=== PATIENT | male | born 1940 ===

== ENCOUNTER 2019-03-25 06:40 | Inpatient (IN) | payer MEDICARE, OTHER ==
[~2019-03-25] VITALS: Ht 180.3 cm; Wt 99.1 kg
[2019-03-25] MEDS ORDERED: ESOM20 PO (06:49)
[2019-03-25 07:12] LABS: BASOPHILS ABSOLUTE AUTO 0.07 K/mm3 (0.00-0.23); BASOPHILS PERCENT AUTO 0 % (0-2); EOSINOPHILS PERCENT AUTO 0 % (0-6); Hematocrit 47.6 % (37.0-53.0); Hemoglobin 15.1 g/dL (13.5-17.5); IMMATURE GRAN ABSOLUTE AUTO 0.19 K/mm3 (0.00-0.10); IMMATURE GRAN PERCENT AUTO 1 % (0-1); LYMPHOCYTES ABSOLUTE AUTO 2.48 K/mm3 (0.84-5.20); LYMPHOCYTES PERCENT AUTO 9 % (21-46); MONOCYTES ABSOLUTE AUTO 2.49 K/mm3 (0.16-1.47); MONOCYTES PERCENT AUTO 9 % (4-13); Mean Corpuscular HGB 30.4 pg (26.0-34.0); Mean Corpuscular HGB Conc 31.7 g/dL (31.5-36.5); Mean Corpuscular Volume 96 fL (80-100); Mean Platelet Volume 8.9 fL (9.1-12.4); NEUTROPHILS PERCENT AUTO 80 % (41-73); Platelet Count 394 K/mm3 (150-400); RDW Coefficient Variation 14.1 % (11.7-14.2); RDW Standard Deviation 49.6 fL (35.1-46.3); Red Blood Cell Count 4.97 M/mm3 (4.30-5.90); White Blood Cell Count 26.63 K/mm3 (4.00-11.30)
[2019-03-25 07:23] LABS: Bilirubin, Total 0.4 mg/dL (0.1-1.0); Bun/Creatinine Ratio 18.7 (12.0-20.0); Calcium, Blood 9.2 mg/dL (8.5-10.1); Creatinine, Blood 1.82 mg/dL (0.60-1.20); Globulin, Blood 4.2 g/dL (2.2-4.0); Potassium, Blood 4.4 mmol/L (3.5-5.5); Total Protein, Blood 8.2 g/dL (6.4-8.2)
[2019-03-25 07:28] LABS: International Normalized Ratio 0.97; Prothrombin Time Results 10.3 Sec (9.7-11.5)
[2019-03-25 09:14] LABS: Source, Urine Catheter
[2019-03-25 09:16] LABS: Appearance, Urine Clear (Clear); Bilirubin, Urine Neg (Neg); Blood, Urine 2+ (Neg); Color, Urine Yellow (P-Yellow); Glucose Qualitative, Urine Neg (Neg); Ketones, Urine 2+ (Neg); Leukocyte Esterase, Urine Neg (Neg); Nitrite, Urine Neg (Neg); Protein, Urine Neg (Neg); Urobilinogen, Urine NORM (Normal)
[2019-03-25 09:31] LABS: Bacteria Few /hpf; Squamous Epithelial Cells Rare /hpf (Few); White Blood Cells, Urine 0-2 /hpf (0-5)
[2019-03-25 09:34] LABS: PCO2 Arterial 23.6 mmHg (35-45); PO2 Arterial 65.3 mmHg (80-100); pH Blood Arterial 7.35 (7.35-7.45)
[2019-03-25 10:03] LABS: Magnesium, Blood 2.5 mg/dL (1.6-2.4); Phosphorus, Blood 7.9 mg/dL (2.5-4.9)
[2019-03-25 15:14] LABS: Bun/Creatinine Ratio 25.7 (12.0-20.0); Creatinine, Blood 1.36 mg/dL (0.60-1.20); Potassium, Blood 4.3 mmol/L (3.5-5.5)
[2019-03-25 16:33] LABS: Hematocrit 39.4 % (37.0-53.0); Hemoglobin 13.3 g/dL (13.5-17.5)
--- NOTE | 2019-03-25 17:08 | NUR ---
PT BILLY FLUSHED WITH 60ML OF STERILE WATER PER MD ORDER. PT HAS HAD MINIMAL OUTPUT OVER THE LAST HOUR (75ML) SO FLUSH WAS DONE. BILLY BAG HAS NEARLY 200ML IN IT AT THIS TIME BRIGHT RED URINE. SMALL CLOTS NOTED PRIOR TO THE FLUSH HOWEVER POST FLUSH NO CLOTS ARE VISIBLE POSSIBLE BLOOD R/T TRAUMA FROM CATHETER PLACEMENT D/T OBSTRUCTION.
--- NOTE | 2019-03-25 18:57 | NUR ---
SHIFT SUMMARY- PT ALERT AND ORIENTED. BILLY IN PLACE PATENT AND DRAINING ORDER TO FLUSH Q1H NEEDED D/T CLOTS. CLOTS ARE VERY SMALL IF ANY ARE VISIBLE AT THIS TIME. PT HAS HAD NO C/O PAIN T/O THE SHIFT SINCE ADMISSION THROUGH THE ED, TEMP WAS ELEVATED TO 100.3 MEDICATED WITH TYLENOL AND TEMP ON FOLLOW UP WAS 99.1. PT HAS A LACTIC OF 6.6 ON THE LAST LABS. PT SEEMS TO HAVE MORE ENERGY THAN HE HAD EARLIER IN THE SHIFT.
--- NOTE | 2019-03-26 04:00 | NUR ---
BILLY FLUSH FLUSH PER ORDER. PT HAD FEW SMALL BLOOD CLOTS NOTED. BILLY BEEN DRAINING FREELY W/OUT ISSUE. URINE REMAINS LIGHT PINK.
[2019-03-26 04:16] LABS: BASOPHILS ABSOLUTE AUTO 0.02 K/mm3 (0.00-0.23); BASOPHILS PERCENT AUTO 0 % (0-2); EOSINOPHILS ABSOLUTE AUTO 0.01 K/mm3 (0.00-0.68); EOSINOPHILS PERCENT AUTO 0 % (0-6); Hematocrit 36.5 % (37.0-53.0); Hemoglobin 12.5 g/dL (13.5-17.5); IMMATURE GRAN ABSOLUTE AUTO 0.04 K/mm3 (0.00-0.10); IMMATURE GRAN PERCENT AUTO 0 % (0-1); LYMPHOCYTES ABSOLUTE AUTO 1.39 K/mm3 (0.84-5.20); LYMPHOCYTES PERCENT AUTO 10 % (21-46); MONOCYTES ABSOLUTE AUTO 0.99 K/mm3 (0.16-1.47); MONOCYTES PERCENT AUTO 7 % (4-13); Mean Corpuscular HGB 30.9 pg (26.0-34.0); Mean Corpuscular HGB Conc 34.2 g/dL (31.5-36.5); Mean Corpuscular Volume 90 fL (80-100); Mean Platelet Volume 8.8 fL (9.1-12.4); NEUTROPHILS ABSOLUTE AUTO 11.66 K/mm3 (1.96-9.15); NEUTROPHILS PERCENT AUTO 83 % (41-73); Platelet Count 208 K/mm3 (150-400); RDW Coefficient Variation 14.1 % (11.7-14.2); RDW Standard Deviation 46.5 fL (35.1-46.3); Red Blood Cell Count 4.04 M/mm3 (4.30-5.90); White Blood Cell Count 14.11 K/mm3 (4.00-11.30)
[2019-03-26 04:47] LABS: Anion Gap 7 mmol/L (6-16); Blood Urea Nitrogen 21 mg/dL (8-24); Bun/Creatinine Ratio 19.1 (12.0-20.0); CO2, Blood 23 mmol/L (21-32); Calcium, Blood 7.5 mg/dL (8.5-10.1); Chloride, Blood 107 mmol/L (98-108); Glomerular Filtration Rate >60 (60-); Glucose, Blood 124 mg/dL (70-99); Potassium, Blood 3.3 mmol/L (3.5-5.5); Sodium, Blood 137 mmol/L (136-145)
--- NOTE | 2019-03-26 05:00 | NUR ---
SHIFT SUMMARY PT HAD NO ISSUES NOTED. PT HAD NO COMPLAINTS AND SLEPT OFF AND ON T/O SHIFT. PT BILLY REQUIRED TO BE FLUSHED ONCE THIS SHIFT. BILLY IS DRAINING W/OUT ISSUE. PT DID HAVE TO BM'S THAT HAD NO NOTICEABLE BLOOD OR BLACK TARRY APPEARENCE. PT CURRENTLY SLEEPING AND BREATHING EASY. CALL LIGHT IN REACH.
[2019-03-26 05:08] LABS: Phosphorus, Blood 0.8 mg/dL (2.5-4.9)
--- NOTE | 2019-03-26 18:46 | NUR ---
SHIFT SUMMARY- PT ALERT AND ORIENTED AND IS UP TO THE BATHROOM INDEPENDENTLY. BILLY IN PLACE PATENT AND DRAINING LIGHT PINK TO YELLOW URINE. PT STATED ON EVENING ROUNDS THAT HE PLANS TO LEAVE TOMORROW. TALKED ABOUT THE IMPORTANCE OF HIS ELECTROLYTES BEING CORRECT SO THAT HE CAN LEAVE SAFELY WITH DISCHARGE ORDERS. PLANS TO SEND THE PT HOME, LIKELY WITH THE BILLY TO FOLLOW UP WITH UROLOGY.
[2019-03-27 04:35] LABS: BASOPHILS ABSOLUTE AUTO 0.02 K/mm3 (0.00-0.23); BASOPHILS PERCENT AUTO 0 % (0-2); EOSINOPHILS ABSOLUTE AUTO 0.08 K/mm3 (0.00-0.68); EOSINOPHILS PERCENT AUTO 1 % (0-6); Hematocrit 35.5 % (37.0-53.0); Hemoglobin 12.2 g/dL (13.5-17.5); IMMATURE GRAN ABSOLUTE AUTO 0.03 K/mm3 (0.00-0.10); IMMATURE GRAN PERCENT AUTO 0 % (0-1); LYMPHOCYTES ABSOLUTE AUTO 2.05 K/mm3 (0.84-5.20); LYMPHOCYTES PERCENT AUTO 24 % (21-46); MONOCYTES ABSOLUTE AUTO 0.71 K/mm3 (0.16-1.47); MONOCYTES PERCENT AUTO 8 % (4-13); Mean Corpuscular HGB 31.3 pg (26.0-34.0); Mean Corpuscular HGB Conc 34.4 g/dL (31.5-36.5); Mean Corpuscular Volume 91 fL (80-100); NEUTROPHILS ABSOLUTE AUTO 5.76 K/mm3 (1.96-9.15); NEUTROPHILS PERCENT AUTO 67 % (41-73); Platelet Count 205 K/mm3 (150-400); RDW Coefficient Variation 14.1 % (11.7-14.2); RDW Standard Deviation 47.1 fL (35.1-46.3); White Blood Cell Count 8.65 K/mm3 (4.00-11.30)
[2019-03-27 04:55] LABS: Anion Gap 7 mmol/L (6-16); Blood Urea Nitrogen 5 mg/dL (8-24); Bun/Creatinine Ratio 5.4 (12.0-20.0); CO2, Blood 24 mmol/L (21-32); Calcium, Blood 7.4 mg/dL (8.5-10.1); Chloride, Blood 112 mmol/L (98-108); Creatinine, Blood 0.93 mg/dL (0.60-1.20); Glomerular Filtration Rate >60 (60-); Glucose, Blood 110 mg/dL (70-99); Magnesium, Blood 1.7 mg/dL (1.6-2.4); Phosphorus, Blood 1.3 mg/dL (2.5-4.9); Potassium, Blood 3.3 mmol/L (3.5-5.5); Sodium, Blood 143 mmol/L (136-145)
--- NOTE | 2019-03-27 05:42 | NUR ---
SHIFT SUMMARY NO ACUTE CHANGES THIS SHIFT. AOX4. VS STABLE. DENIES PAIN, NAUSEA, DYSPNEA. BILLY IS PATENT & DRAINING CLEAR ORANGE URINE. TOLERATING CLEAR LIQUID DIET, NO EMESIS. PT HAD 1 LIQUID GREEN/BROWN BM. NS RUNNING @125/HR. INDEPENDENT IN ROOM, CALL LIGHT IN REACH & I WILL CONT TO MONITOR.
[2019-03-27] MEDS ORDERED: Vitamin D2000 UNIT PO (10:53)
[2019-03-27] MEDS ORDERED: Calcium Carbon500 M1 PO (10:55)
--- NOTE | 2019-03-27 12:02 | NUR ---
DISCHARGE INSTRUCTIONS VERBALIZED TO PATIENT. A PRINTED COPY AND EDUCATIONAL MATERIAL PROVIDED WELL FOR REFERENCE. ALL QUESTIONS ANSWERED. EXPLAINATION ON DEALING WITH A BILLY AT HOME GIVEN. PATIENT IN ROOM GETTING READY FOR D/C. HIS GIRLFRIEND TO COME AND TRANSPORT HIM HOME.
--- NOTE | 2019-03-27 13:29 | NUR ---
PATIENT DISCHARGED HOME WITH GIRLFRIEND AT 1325.
== END 2019-03-27 13:29 | disposition home or self-care (01) | DRG 694 ==
LOC: ER 06:40 → MEDS 10:53 → ENPENDDIS 03-27 10:26 → MEDS 03-27 13:29
PROVIDERS: Emergency Medicine; Nurse Practitioner Acute Care; ADMIT Hospitalist
DX: N13.1 Hydronephrosis with ureteral stricture, not elsewhere classified (principal); R65.10 Systemic inflammatory response syndrome (SIRS) of non-infectious origin without acute organ dysfunction; E87.2 Acidosis; N17.9 Acute kidney failure, unspecified; E83.39 Other disorders of phosphorus metabolism; E87.6 Hypokalemia; E83.51 Hypocalcemia; F10.20 Alcohol dependence, uncomplicated; K21.9 Gastro-esophageal reflux disease without esophagitis
CPT/HCPCS: 36415; 36416; 36600; 51702; 71046; 74176; 80048; 80053; 81001; 82272; 82550; 82803; 83605; 83735; 84100; 84145; 84153; 85014; 85018; 85025; 85610; 85730; 86850; 86900; 86901; 93005; 93010; 96361-59; 96374-59; 96375-59; 99285-25; A9270; C9113; J0610; J2405; J7030; J7060